=== PATIENT | female | born 1985 | race Caucasian/White ===

== ENCOUNTER 2023-01-24 18:30 | Outpatient (CLI) | payer BC | END 2023-01-24 18:31 | disposition home or self-care (01) | LOC: SLEEPLAB 18:30 | DX: G47.33 Obstructive sleep apnea (adult) (pediatric) (principal); F32.9 Major depressive disorder, single episode, unspecified; F41.9 Anxiety disorder, unspecified; E11.9 Type 2 diabetes mellitus without complications; E66.9 Obesity, unspecified; R53.83 Other fatigue | CPT/HCPCS: 95800 ==

== ENCOUNTER 2023-02-17 09:24 | Outpatient (CLI) | payer BC | END 2023-02-17 09:25 | disposition home or self-care (01) | LOC: DTY/OP 09:24 | PROVIDERS: ATTEND Student in an Organized Health Care Education/Training Program | DX: O24.919 Unspecified diabetes mellitus in pregnancy, unspecified trimester (principal) | CPT/HCPCS: 97802 ==

== ENCOUNTER 2023-06-16 17:00 | Outpatient (CLI) | payer BC | END 2023-06-16 17:01 | disposition home or self-care (01) | LOC: SLEEPLAB 17:00 | PROVIDERS: ATTEND Obstetrics & Gynecology Maternal & Fetal Medicine | DX: G47.33 Obstructive sleep apnea (adult) (pediatric) (principal); E11.9 Type 2 diabetes mellitus without complications; E66.9 Obesity, unspecified; I10 Essential (primary) hypertension; Z68.43 Body mass index [BMI] 50.0-59.9, adult | CPT/HCPCS: 95811 ==

== ENCOUNTER 2024-07-09 09:24 | Outpatient (CLI) | payer BC | END 2024-07-09 09:25 | disposition home or self-care (01) | LOC: BICMAMMO 09:24 | PROVIDERS: ATTEND Nurse Practitioner Family | DX: N63.0 Unspecified lump in unspecified breast (principal) | CPT/HCPCS: 77066; G0279 ==